=== PATIENT | male | born 1950 ===

== ENCOUNTER 2023-02-26 05:00 | Day surgery (SDC) | payer OTHER ==
[~2023-02-26 05:00] MED LIST: ADULT LOW DOSE81 M1 PO; ALPRAZOLAM XR0.5 MG PO; ARMOUR THYROID180 M1 PO; DEXILANT30 MG PO; DILTIAZEM PO; FARXIGA10 MG PO; INSPRA25 MG PO; [UNRECOGNIZED DRUG - OTHER] PO
[2023-02-26] MEDS ORDERED: OXYC1TAB9 PO (10:27)
== END 2023-02-26 13:25 | disposition home or self-care (01) ==
LOC: CIR.AMB 05:00
PROVIDERS: ATTEND Surgery
DX: K64.2 Third degree hemorrhoids (principal); K64.4 Residual hemorrhoidal skin tags; K64.8 Other hemorrhoids; K62.5 Hemorrhage of anus and rectum; K62.89 Other specified diseases of anus and rectum; I10 Essential (primary) hypertension; Z20.822 Contact with and (suspected) exposure to COVID-19

== ENCOUNTER 2024-04-14 06:10 | Day surgery (SDC) | payer OTHER ==
[2024-04-07 09:18] VITALS: BP 129/86
[~2024-04-14] VITALS: Ht 167.6 cm; Wt 90.7 kg
[~2024-04-14 06:10] MED LIST changes: +CATAPRES0.3 MG PO; +CHILDREN'S ASPI81 MG PO; +ELIQUIS2.5 MG PO; +GLIPIZIDE ER10 MG PO; +LANTUS SOL100 UNIT/1; +OXYC1TAB9 PO; +VALSARTAN80 MG PO; +[UNRECOGNIZED DRUG - OTHER]
[2024-04-14] MEDS ORDERED: CEFTRIAXONE SODIUM 2,000 MG VIAL ONE (09:03)
[2024-04-14] MEDS ORDERED: METRONIDAZOLE/SODIUM CHLORIDE 500 MG/100 ML PIGGYBACK IV ONE (09:03)
[2024-04-14] MEDS ORDERED: HEMOSTATIC MATRIX 1 KIT KIT TOP ONE (10:09)
[2024-04-14] MEDS ORDERED: BUPIVACAINE HCL/MPF 0.5% 30ML VIAL ONE (10:10)
[2024-04-14] MEDS ORDERED: DIBUCAINE 30 GM TUBE ONE (10:10)
[2024-04-14] MEDS ORDERED: LIDOCAINE HCL 1%/EPINEPHRINE 20ML VIAL IJ ONE (10:10)
[2024-04-14] MEDS ORDERED: POVIDONE-IODINE 118 ML BOTT TOP ONE (10:10)
[2024-04-14] MEDS ORDERED: TAMSULOSIN HCL 0.4 MG CAP PO ONE ×2 (11:45→14:25)
[2024-04-14] MEDS ORDERED: OXYCODONE HCL5 MG PO (12:10)
== END 2024-04-14 16:45 | disposition home or self-care (01) ==
LOC: CIR.AMB 06:10
PROVIDERS: ATTEND Surgery
DX: D12.9 Benign neoplasm of anus and anal canal (principal); K64.5 Perianal venous thrombosis; K62.0 Anal polyp; K64.4 Residual hemorrhoidal skin tags; K59.4 Anal spasm; K60.1 Chronic anal fissure; K64.2 Third degree hemorrhoids; K59.09 Other constipation; I10 Essential (primary) hypertension; E11.9 Type 2 diabetes mellitus without complications